=== PATIENT | female | born 1975 | race Caucasian/White ===

== ENCOUNTER 2017-08-13 17:16 | Emergency (ER) | payer SELFPAY ==
[~2017-08-13] VITALS: Ht 157.5 cm; Wt 100.0 kg
[~2017-08-13 17:16] MED LIST: AMOXICILLIN500 MG PO; ATENOLOL25 MG PO; ATENOLOL50 MG PO; CEPHALEXIN500 M1 OR; CEPHALEXIN500 MG PO; CLINDAMYCIN300 MG OR; FLONASE NASAL50 MCG; FUROSEMIDE20 MG PO; KEFLEX500 M1 PO; LASIX 40 MG TAB40 MG PO; LISINOPRIL10 MG PO; LISINOPRIL5 MG PO; LORTAB 7.5-3251 TAB PO; MEDDOSEPAK OR; NAPROSYN500 MG PO; NEW B/P MED; NO; NO HOME MEDS; PERCOCET 5/325M1 TAB OR; ROBITUSSIN AC OR; ROBITUSSIN AC10 ML OR; TYLENOL # 31 TAB OR; ULTRAM50 M1 PO; ZITHROMAX250 MG PO
[2017-08-13] MEDS ORDERED: PENICILLN VK500 MG PO (17:47)
[2017-08-13 17:49] VITALS: BP 146/95
== END 2017-08-13 18:02 | disposition left against medical advice (07) | DRG 153 ==
LOC: ED 17:16
DX: J02.9 Acute pharyngitis, unspecified (principal); F17.200 Nicotine dependence, unspecified, uncomplicated; R07.89 Other chest pain; I10 Essential (primary) hypertension

== ENCOUNTER 2017-12-14 00:42 | Emergency (ER) | payer SELFPAY ==
[~2017-12-14] VITALS: Ht 157.5 cm; Wt 104.5 kg
[~2017-12-14 00:42] MED LIST changes: +PENICILLN VK500 MG PO
[2017-12-14 00:46] VITALS: BP 194/111
[2017-12-14] MEDS ORDERED: MOTRIN800 MG PO (01:09)
[2017-12-14] MEDS ORDERED: TRAMADOL HCL50 MG PO (01:09)
[2017-12-14] MEDS ORDERED: AMOXICILLIN500 MG PO (01:09)
== END 2017-12-14 01:25 | disposition home or self-care (01) | DRG 159 ==
LOC: ED 00:42
DX: K02.9 Dental caries, unspecified (principal); F17.210 Nicotine dependence, cigarettes, uncomplicated; I10 Essential (primary) hypertension

== ENCOUNTER 2017-12-14 05:56 | Emergency (ER) | payer SELFPAY ==
[~2017-12-14] VITALS: Ht 157.5 cm; Wt 104.5 kg
[~2017-12-14 05:56] MED LIST changes: +MOTRIN800 MG PO; +TRAMADOL HCL50 MG PO
[2017-12-14 06:59] VITALS: BP 140/80
== END 2017-12-14 07:05 | disposition home or self-care (01) | DRG 159 ==
LOC: ED 05:56
DX: K02.9 Dental caries, unspecified (principal); F17.210 Nicotine dependence, cigarettes, uncomplicated

== ENCOUNTER 2018-07-23 14:47 | Emergency (ER) | payer SELFPAY ==
[~2018-07-23] VITALS: Ht 157.5 cm; Wt 110.0 kg
[2018-07-23] MEDS ORDERED: CLEOCIN300 MG PO (17:02)
[2018-07-23 17:10] VITALS: BP 144/84
[2018-07-25] MEDS ORDERED: AMOXICILLIN875 MG PO (16:47)
== END 2018-07-23 17:10 | disposition home or self-care (01) | DRG 159 ==
LOC: ED 14:47
DX: K04.7 Periapical abscess without sinus (principal); F17.210 Nicotine dependence, cigarettes, uncomplicated

== ENCOUNTER 2018-09-17 15:51 | Emergency (ER) | payer SELFPAY ==
[~2018-09-17] VITALS: Ht 157.5 cm; Wt 109.1 kg
[~2018-09-17 15:51] MED LIST changes: +AMOXICILLIN875 MG PO; +CLEOCIN300 MG PO
[2018-09-17] MEDS ORDERED: ZPAK PO (16:38)
[2018-09-17] MEDS ORDERED: POLYTRIM OU (16:38)
[2018-09-17 16:45] VITALS: BP 145/87
== END 2018-09-17 16:45 | disposition home or self-care (01) | DRG 153 ==
LOC: ED 15:51
DX: J06.9 Acute upper respiratory infection, unspecified (principal); H10.9 Unspecified conjunctivitis; I10 Essential (primary) hypertension; F17.210 Nicotine dependence, cigarettes, uncomplicated

== ENCOUNTER 2019-12-28 | Emergency (ER) | payer SELFPAY ==
[~2019-12-28] MED LIST changes: +POLYTRIM OU; +ZPAK PO
[2019-12-28] MEDS ORDERED: LISINOPRIL10 MG PO (18:32)
[2019-12-28 20:02] LABS: URINE BILIRUBIN - DIPSTICK NEGATIVE (NEGATIVE); URINE BLOOD DIPSTICK NEGATIVE (NEGATIVE); URINE COLOR YELLOW; URINE GLUCOSE - DIPSTICK NEGATIVE (NEGATIVE); URINE KETONE NEGATIVE (NEGATIVE); URINE LEUK ESTERASE NEGATIVE (NEGATIVE); URINE NITRITE - DIPSTICK NEGATIVE (Negative); URINE PROTEIN - DIPSTICK NEGATIVE (NEG-TRACE); URINE SPECIFIC GRAVITY 1.025; URINE UROBILINOGEN - DIPSTICK 0.2 E.U./dL (0.2)
[2019-12-28 20:03] LABS: HEMATOCRIT 46.4 % (37.0-47.0); HEMOGLOBIN 14.6 g/dl (12.0-16.0); IMMATURE GRANULOCYTES 0.6 % (0.0-5.0); MEAN CORPUSCULAR HGB 29.3 pG CALC (26.0-32.0); MEAN CORPUSCULAR HGB CONC 31.5 g/dL CAL (32.0-36.0); NEUT# 11.46 thou/uL (2.00-7.15); RED BLOOD COUNT 4.99 mill/uL (4.20-5.60); RED CELL DISTRI WIDTH 14.4 % (11.5-15.5)
[2019-12-28 20:13] LABS: ALBUMIN 4.6 g/dL (3.2-5.0); ALKALINE PHOSPHATASE 97 u/l (38-126); ANION GAP 15 (6-22 (CALC)); BILIRUBIN, TOTAL 0.6 mg/dL (0.0-1.4); BUN 10 mg/dL (7-17); BUN/CREATININE RATIO 13 (12-20 (CALC)); CARBON DIOXIDE 26 mmol/l (22-30); CHLORIDE 100 mmol/l (95-108); CREATININE 0.8 mg/dL (0.5-1.0); GFR > 60 ML/MIN (>=60 (CALC)); GFR FOR AFR.AMER. > 60 ML/MIN (>=60 (CALC)); POTASSIUM 4.8 mmol/l (3.5-5.1); SGOT/AST 33 u/l (14-36); SODIUM 136 mmol/l (137-146); TOTAL PROTEIN 8.5 g/dL (6.3-8.2)
[2019-12-28 20:20] LABS: ACT PARTIAL THROMBO TIME 27.3 SECONDS (20.0-32.5); INTERNATIONAL NORMALIZED RATIO 0.9 RATIO (0.7-1.3); PROTHROMBIN TIME 9.8 SECONDS (9.0-12.5)
[2019-12-28 20:25] LABS: MYOGLOBIN 31 ng/mL (0 - 62)
== END 2019-12-28 21:32 | disposition home or self-care (01) | DRG 159 ==
PROVIDERS: Emergency Medicine
DX: K04.7 Periapical abscess without sinus (principal); I10 Essential (primary) hypertension; F17.210 Nicotine dependence, cigarettes, uncomplicated

== ENCOUNTER 2020-02-17 22:14 | Emergency (ER) | payer SELFPAY ==
[2020-02-17] MEDS ORDERED: CLARITIN10 M1 PO (22:53)
[2020-02-17] MEDS ORDERED: FLONASE AL50 MCG/ACT (22:53)
[2020-02-17] MEDS ORDERED: AMOXICILLIN875 MG PO (22:53)
[2020-02-17] MEDS ORDERED: LISINOPRIL10 MG PO (22:53)
[2020-02-17 23:15] VITALS: BP 152/100
== END 2020-02-17 23:15 | disposition home or self-care (01) | DRG 153 ==
LOC: ED 22:14
DX: H65.91 Unspecified nonsuppurative otitis media, right ear (principal); H66.92 Otitis media, unspecified, left ear; I10 Essential (primary) hypertension; F17.210 Nicotine dependence, cigarettes, uncomplicated

== ENCOUNTER 2020-03-27 13:48 | Emergency (ER) | payer SELFPAY ==
[~2020-03-27] VITALS: Ht 157.5 cm; Wt 113.6 kg
[~2020-03-27 13:48] MED LIST changes: +CLARITIN10 M1 PO; +FLONASE AL50 MCG/ACT
[2020-03-27] MEDS ORDERED: AMOXICILLIN875 MG PO ×2 (15:23)
[2020-03-27 15:30] VITALS: BP 149/71
== END 2020-03-27 15:35 | disposition home or self-care (01) | DRG 153 ==
LOC: ED 13:48
DX: J02.9 Acute pharyngitis, unspecified (principal); I10 Essential (primary) hypertension; F17.210 Nicotine dependence, cigarettes, uncomplicated; Z20.828 Contact with and (suspected) exposure to other viral communicable diseases

== ENCOUNTER 2020-03-29 08:57 | Observation (INO) | payer SELFPAY ==
[~2020-03-29] VITALS: Ht 157.5 cm; Wt 110.8 kg
--- NOTE | 2020-03-29 08:57 | NUR ---
PT TO ROOM VIA WC
--- NOTE | 2020-03-29 09:05 | NUR ---
PT CHANGED TO GOWN. MONITORS APPLIED. PT REPORTS CHEST PAIN WORSE WITH DEEP BREATH. PT REPORTS HAS BEEN SICK SINCE THURSDAY BUT FEELING WORSE TODAY. PT AO X 3. SKIN PINK WARM AND DRY
[2020-03-29 09:15] LABS: HEMATOCRIT 42.4 % (37.0-47.0); HEMOGLOBIN 13.5 g/dl (12.0-16.0); IMMATURE GRANULOCYTES 0.6 % (0.0-5.0); MEAN CORPUSCULAR HGB 29.3 pG CALC (26.0-32.0); MEAN CORPUSCULAR HGB CONC 31.8 g/dL CAL (32.0-36.0); NEUT# 18.97 thou/uL (2.00-7.15); RED BLOOD COUNT 4.61 mill/uL (4.20-5.60); RED CELL DISTRI WIDTH 14.3 % (11.5-15.5)
--- NOTE | 2020-03-29 09:15 | NUR ---
PT REPORTS PAIN 3/10 AFTER NTG. BP 98/64. DR BELLAMY AWARE. FURTHER NTG HELD PER .
[2020-03-29 09:28] LABS: ALBUMIN 4.4 g/dL (3.2-5.0); ALKALINE PHOSPHATASE 132 u/l (38-126); ANION GAP 11 (6-22 (CALC)); BUN 9 mg/dL (7-17); BUN/CREATININE RATIO 10 (12-20 (CALC)); CARBON DIOXIDE 25 mmol/l (22-30); CHLORIDE 103 mmol/l (95-108); CREATININE 0.9 mg/dL (0.5-1.0); GFR > 60 ML/MIN (>=60 (CALC)); GFR FOR AFR.AMER. > 60 ML/MIN (>=60 (CALC)); SGOT/AST 19 u/l (14-36); SODIUM 135 mmol/l (137-146); TOTAL PROTEIN 8.1 g/dL (6.3-8.2)
[2020-03-29 09:31] LABS: BILIRUBIN, TOTAL 0.3 mg/dL (0.0-1.4)
[2020-03-29 09:56] LABS: C-REACTIVE PROTEIN 22.1 mg/dL (0-0.9)
--- NOTE | 2020-03-29 09:57 | NUR ---
PT POSITIONED FOR COMFORT. HOB ELEVATED. ICE PACK GIVEN
[2020-03-29 10:32] LABS: URINE BILIRUBIN - DIPSTICK NEGATIVE (NEGATIVE); URINE BLOOD DIPSTICK SMALL (NEGATIVE); URINE COLOR YELLOW; URINE GLUCOSE - DIPSTICK NEGATIVE (NEGATIVE); URINE KETONE TRACE mg/dL (NEGATIVE); URINE LEUK ESTERASE NEGATIVE (NEGATIVE); URINE NITRITE - DIPSTICK NEGATIVE (Negative); URINE PH 5.5 (4.5-8.0); URINE PROTEIN - DIPSTICK 30 mg/dL (NEG-TRACE); URINE SPECIFIC GRAVITY >=1.030; URINE UROBILINOGEN - DIPSTICK 0.2 E.U./dL (0.2)
[2020-03-29 10:33] LABS: URINE SQUAMOUS EPITHELIAL CELL FEW EPI/hpf (0-FEW)
--- NOTE | 2020-03-29 11:41 | NUR ---
PT RESTING ON STRETCHER. LUNCH TRAY GIVEN. MED SURG UNABLE TO TAKE PATIENT AT THIS TIME.
--- NOTE | 2020-03-29 13:14 | NUR ---
PT RESTING ON STRETCHER. PAIN /
--- NOTE | 2020-03-29 14:20 | NUR ---
PT RESTING ON STRETCHER. PAIN 12/22. MED SURG UNABLE TO TAKE PATIENT AT THIS TIME
--- NOTE | 2020-03-29 15:17 | NUR ---
PT CONTINUES AWAITING MED SURG ADMISSION
--- NOTE | 2020-03-29 15:37 | NUR ---
PT GIVEN JUICE AND WATER
--- NOTE | 2020-03-29 16:01 | NUR ---
MED SURG UNABLE TO TAKE REPORT AT THIS TIME
--- NOTE | 2020-03-29 16:50 | NUR ---
REPORT CALLED TO MED SURG
--- NOTE | 2020-03-29 17:10 | NUR ---
PT TAKEN VIA WHEELCHAIR. TELEMETRY IN PLACE TO MED SURG
--- NOTE | 2020-03-29 17:10 | NUR ---
PT ARRIVED TO [facility] ROOM 284 IN STABLE CONDITION VIA WHEELCHAIR, ACCOMPAINED BY POLI URIAS. PT AMBULATED FROM WHEELCHAIR TO BE WITH STEADY GAIT, FALL RISK BAND APPLIED. PT IS A/O X3. ASSESSMENT AND VITALS COMPLETED AT THIS TIME. BP 96/60, HR 83, O2 98% ON ROOM AIR. RESPIRATIONS ARE EVEN AND UNLABORED WITH NO SIGNS OF DISTRESS. LUNG SOUNDS ARE CLEAR. HEART RHYTHM IS NORMAL WITH TELE IN PLACE.BOWEL SOUNDS ARE ACTIVE IN ALL QUADRANTS WITH NO TENDERNESS, LAST REPORTED BM 03/28/20. RADIAL AND PEDAL PULSES ARE BOTH STRONG WITH NORMAL CAPILLARY REFILL. SKIN IS COOL AND DRY WITH NO EDEMA OR BREAKDOWN.#20 LAC FLUSHED, SITE APPEARS HEALTHY AND PATENT. IV FLUIDS STARTED AT 100ML ORDERED. PT INFORMS WRITTER THAT SHE PRESENTED TO [facility] ER FOR CHEST PAIN THAT SHE HAS BEEN EXPERIENCING FOR AN HOUR PRIOR TO COMING IN. PT STATES THAT SHE CURRENTLY HAS 3/10 "PRESSURE" ON CHEST. DR WHEELER NOTIFED. PT INFORMS WRITTER THAT SHE HAS NKDA, ALLERGY BAND APPLIED. PT DENIES ANY OTHER PAINS OR DISCOMFORTS AT THIS TIME. ALL SAFETY AND ISOLATION PRECAUTIONS IN PLACE WITH CALL LIGTH IN REACH, PT ORIENTED TO CALL SYSTEM AND ROOM.WILL CONTINUE TO MONITOR.
[2020-03-29 17:23] VITALS: BP 96/60
[2020-03-29 19:00] VITALS: BP 107/64
--- NOTE | 2020-03-29 19:00 | NUR ---
PT COMPLAINS OF 6/10 CHEST PAIN. TORADOL ADMINISTERED. RESPIRATIONS ARE EVEN AND UNLABORED WITH NO ISGNS OF DISTRESS. ALL SAFTEY PRECAUTIONS IN PLACE WITH CALL LIGHT IN REACH. WILL COTNINUE TO MONITOR
--- NOTE | 2020-03-29 21:45 | NUR ---
PT LAYING IN BED RESTING, NO APPARENT DISTRESS, RESPIRATIONS REG & UNLABORED. PHYSICAL ASSESMENT COMPLETE. PT C/O CHEST DISCOMFORT WITH COUGH, MEDICATED WITH PRN APAP, PRN SONATA ALSO ADMINISTERED PER PTS REQUEST. SEE E-MAR. SCHEDULED MEDS ADMINISTERED, SEE E-MAR. PT DENIES FURTHER NEEDS AT THIS TIME. PLAN OF CARE REVIEWED, PT DENIES QUESTIONS, VERBALIZES UNDERSTANDING. ITEMS WITHIN REACH, BED LOCKED IN LOW POSITION W/ BEDRAILS UP X2. CALL SANCHEZ WITHIN REACH, AGREES TO CALL PRN.
--- NOTE | 2020-03-29 23:40 | NUR ---
SNACK PROVIDED PER PTS REQUEST. PT REQUEST FOR ANTITTUSSIVE MEDICATION. DR. GAEL VILLARREAL, RESPONSE PENDING. FAN PROVIDED AT BEDSIDE FOR PT C/O ROOM BEING TO WARM.
[2020-03-29 23:50] VITALS: BP 93/56
--- NOTE | 2020-03-30 00:30 | NUR ---
2ND TROPONIN DRAWN
--- NOTE | 2020-03-30 01:08 | NUR ---
TROPONIN RESULTED, RESULTS NEGATIVE.
[2020-03-30 05:19] VITALS: BP 107/49
[2020-03-30 05:54] LABS: CHOLESTEROL HDL RATIO 3.2 (<4.4 (CALC))
[2020-03-30 06:00] LABS: MAGNESIUM 2.3 mg/dL (1.6-2.3)
--- NOTE | 2020-03-30 06:08 | NUR ---
ASSESMENT UNCHANGED FROM BEGINING OF SHIFT BASELINE ASSESMENT. AM HEMODYNAMICS WNL/ STABLE. PT AFEBRILE. PT DENIES NEEDS AT THIS TIME. ITEMS REMAIN WITHIN REACH, BED REMAINS LOCKED IN LOW POSITION W/ BEDRAILS UP X2. CALL SANCHEZ REMAINS WITHIN REACH, AGREES TO CALL PRN.
[2020-03-30 08:16] VITALS: BP 118/63
--- NOTE | 2020-03-30 08:34 | NUR ---
RECEIEVED REPORT FROM POLI BAEZ. PT RESTING IN LOW FOWLERS POSITITION. INTRODUCED SELF TO PT AND DISCUSSED POC.ASESSMENT AND VITALS COMPLETED AT THIS TIME. BP 118/60, HR 87, O2 99% ON ROOM AIR. RESPIRATIONS ARE EVEN AND UNLABORED WTIH NO SIGNS OF DISTRESS. LUNG SOUNDS ARE DIMINSIHED, PT DENIES ANY SOB. HEART RHYTHM IS NORMAL WITH TELE IN PLACE. BOWEL SOUNDS ARE ACTIVE IN ALL QUADRANTS. LAST REPORTED BM 02/27/20. RADIAL AND PEDAL PULSES ARE STRONG WITH NORMAL CAPILLARY REFILL. SKIN IS WARM AND DRY WITH NO EDEMA OR BREAKDOWN. IV FLUIDS RUNNING WITH EASE, SITE APPEARS HEALTHY AND PATENT. PT DENIES ANY PAIN OR DISCOMFORTS AT THIS TIME. ALL SAFETY PRECAUTIONS IN PLACE WITH CALL LIGHT IN REACH. WILL CONTINUE TO MONITOR.
[2020-03-30] MEDS ORDERED: AMOXICILLIN500 MG PO (09:13)
[2020-03-30 11:03] VITALS: BP 108/62
--- NOTE | 2020-03-30 11:19 | NUR ---
PT EDUCATED ON DISCHARGE INSTRUCTIONS AND AMOXICILLIN. PT VERBALIZED UNDERSTANDING. IV REMOVED WITH CATHATER STILL INTACT. PT TOLERATED WELL. PT DRESSING AT THE TIME, PT STATES THAT SHE HAS DROVEN HERSELF. ALL SAFETY PRECAUTIONS IN PLACE WITH CALL LIGHT IN REACH. WILL CONTINUE TO MONITOR
--- NOTE | 2020-03-30 11:29 | NUR ---
Discharge instructions given. Patient verbalizes understanding of same. Discharged in stable condition via Ambulatory to Home with staff. All belongings sent with pt. PT DISCHARGED FROM [facility] IN STABLE CONDITION WALKING WITH STABLE GAIT. PT INFORMED WRITTER THAT HER CAR WAS AT THE HOSPITAL AND SHE IS DRIVING HERSELF. ALL DISCHARGE INSTRUCTIONS, AMOXICILLIN PRESCRIPTION AND BELONGINGS LEFT WITH PT.
== END 2020-03-30 11:29 | disposition home or self-care (01) | DRG 313 ==
LOC: ED 08:57 → ED-I 11:01 → ED 11:18 → ED-I 11:19 → MS2 11:37
PROVIDERS: Family Medicine; ADMIT Internal Medicine; ATTEND Internal Medicine
DX: R07.89 Other chest pain (principal); I10 Essential (primary) hypertension; F15.10 Other stimulant abuse, uncomplicated; F17.200 Nicotine dependence, unspecified, uncomplicated; D72.829 Elevated white blood cell count, unspecified; R05 Cough; K04.7 Periapical abscess without sinus; Z20.828 Contact with and (suspected) exposure to other viral communicable diseases
CPT/HCPCS: G0378; Q9967

== ENCOUNTER 2020-09-29 12:55 | Emergency (ER) | payer SELFPAY ==
[~2020-09-29] VITALS: Ht 157.5 cm; Wt 113.0 kg
[2020-09-29] MEDS ORDERED: HYDROCHLOROTH12.5 M1 PO (13:24)
[2020-09-29] MEDS ORDERED: CLINDAMYCIN300 M1 PO (13:32)
[2020-09-29 13:34] VITALS: BP 153/75
== END 2020-09-29 13:37 | disposition home or self-care (01) | DRG 159 ==
LOC: ED 12:55
DX: K04.7 Periapical abscess without sinus (principal); K02.9 Dental caries, unspecified; I10 Essential (primary) hypertension; F17.210 Nicotine dependence, cigarettes, uncomplicated

== ENCOUNTER 2021-09-13 14:34 | Emergency (ER) | payer SELFPAY ==
[~2021-09-13] VITALS: Ht 157.5 cm; Wt 108.0 kg
[~2021-09-13 14:34] MED LIST changes: +CLINDAMYCIN300 M1 PO; +HYDROCHLOROTH12.5 M1 PO
[2021-09-13 17:29] LABS: URINE BILIRUBIN - DIPSTICK NEGATIVE (NEGATIVE); URINE BLOOD DIPSTICK TRACE-INTACT (NEGATIVE); URINE COLOR YELLOW; URINE GLUCOSE - DIPSTICK NEGATIVE (NEGATIVE); URINE KETONE NEGATIVE (NEGATIVE); URINE LEUK ESTERASE NEGATIVE (NEGATIVE); URINE PROTEIN - DIPSTICK NEGATIVE (NEG-TRACE); URINE SPECIFIC GRAVITY >=1.030; URINE UROBILINOGEN - DIPSTICK 0.2 E.U./dL (0.2)
[2021-09-13 17:37] LABS: URINE NITRITE - DIPSTICK NEGATIVE (Negative)
[2021-09-13] MEDS ORDERED: FLEXERIL5 M1 PO (18:02)
[2021-09-13] MEDS ORDERED: MOTRIN800 MG PO (18:02)
[2021-09-13 18:42] VITALS: BP 152/88
== END 2021-09-13 18:42 | disposition home or self-care (01) | DRG 563 ==
LOC: ED 14:34
DX: S39.012A Strain of muscle, fascia and tendon of lower back, initial encounter (principal); I10 Essential (primary) hypertension; F17.200 Nicotine dependence, unspecified, uncomplicated; X58.XXXA Exposure to other specified factors, initial encounter; Z87.442 Personal history of urinary calculi

== ENCOUNTER 2021-11-29 21:48 | Emergency (ER) | payer SELFPAY ==
[~2021-11-29] VITALS: Ht 157.5 cm; Wt 109.0 kg
[~2021-11-29 21:48] MED LIST changes: +FLEXERIL5 M1 PO
[2021-11-29 21:57] VITALS: BP 144/85
[2021-11-29 22:01] VITALS: BP 150/84
[2021-11-29] MEDS ORDERED: LORTAB 1010 MG PO (22:06)
[2021-11-29] MEDS ORDERED: AMOX/K CLAV875 M1 PO (22:06)
[2021-11-29 22:16] VITALS: BP 151/80
[2021-11-29 22:24] VITALS: BP 151/80
== END 2021-11-29 22:24 | disposition home or self-care (01) | DRG 159 ==
LOC: ED 21:48
DX: K04.7 Periapical abscess without sinus (principal); S02.5XXA Fracture of tooth (traumatic), initial encounter for closed fracture; I10 Essential (primary) hypertension; F17.200 Nicotine dependence, unspecified, uncomplicated; X58.XXXA Exposure to other specified factors, initial encounter

== ENCOUNTER 2022-02-22 20:23 | Emergency (ER) | payer SELFPAY ==
[~2022-02-22] VITALS: Ht 157.5 cm; Wt 113.0 kg
[~2022-02-22 20:23] MED LIST changes: +AMOX/K CLAV875 M1 PO; +LORTAB 1010 MG PO
[2022-02-22 21:52] LABS: HEMATOCRIT 38.6 % (37.0-47.0); HEMOGLOBIN 12.2 g/dl (12.0-16.0); IMMATURE GRANULOCYTES 0.6 % (0.0-5.0); MEAN CORPUSCULAR HGB CONC 31.6 g/dL CAL (32.0-36.0); NEUT# 10.47 thou/uL (2.00-7.15); RED BLOOD COUNT 3.94 mill/uL (4.20-5.60); RED CELL DISTRI WIDTH 13.6 % (11.5-15.5)
[2022-02-22 22:14] LABS: ALBUMIN 3.9 g/dL (3.2-5.0); ALKALINE PHOSPHATASE 82 u/l (38-126); ANION GAP 11 (6-22 (CALC)); BILIRUBIN, TOTAL 0.3 mg/dL (0.0-1.4); BUN 8 mg/dL (7-17); BUN/CREATININE RATIO 11 (12-20 (CALC)); CARBON DIOXIDE 30 mmol/l (22-30); CHLORIDE 101 mmol/l (95-108); CREATININE 0.8 mg/dL (0.5-1.0); GFR FOR AFR.AMER. > 60 ML/MIN (>=60 (CALC)); GFR OTHER RACES > 60 ML/MIN (>=60 (CALC)); POTASSIUM 3.8 mmol/l (3.5-5.1); SGOT/AST 32 u/l (14-36); SODIUM 137 mmol/l (137-146); TOTAL PROTEIN 7.4 g/dL (6.3-8.2)
[2022-02-22] MEDS ORDERED: KEFLEX500 MG PO (23:22)
[2022-02-22] MEDS ORDERED: ROBITUSSIN AC10 ML PO (23:22)
[2022-02-22] MEDS ORDERED: MEDDOSEPAK PO (23:22)
[2022-02-22 23:27] VITALS: BP 145/89
== END 2022-02-22 23:35 | disposition home or self-care (01) | DRG 203 ==
LOC: ED 20:23
PROVIDERS: Emergency Medicine
DX: J40 Bronchitis, not specified as acute or chronic (principal)

== ENCOUNTER 2022-03-12 21:50 | Emergency (ER) | payer SELFPAY ==
[~2022-03-12] VITALS: Ht 157.5 cm; Wt 114.0 kg
[~2022-03-12 21:50] MED LIST changes: +KEFLEX500 MG PO; +MEDDOSEPAK PO; +ROBITUSSIN AC10 ML PO
[2022-03-12 22:26] VITALS: BP 144/97
[2022-03-12 22:30] VITALS: BP 123/102
[2022-03-12 22:45] VITALS: BP 140/81
[2022-03-12] MEDS ORDERED: VIBRAMYCIN100 M2 PO (22:54)
[2022-03-12 23:00] VITALS: BP 137/73
== END 2022-03-12 23:10 | disposition home or self-care (01) | DRG 203 ==
LOC: ED 21:50
DX: J40 Bronchitis, not specified as acute or chronic (principal); I10 Essential (primary) hypertension; F17.200 Nicotine dependence, unspecified, uncomplicated

== ENCOUNTER 2022-05-13 10:35 | Emergency (ER) | payer SELFPAY ==
[~2022-05-13] VITALS: Ht 157.5 cm; Wt 113.6 kg
[~2022-05-13 10:35] MED LIST changes: +VIBRAMYCIN100 M2 PO
[2022-05-13 10:43] VITALS: BP 138/99
[2022-05-13 10:45] VITALS: BP 153/88
[2022-05-13 11:00] VITALS: BP 134/89
[2022-05-13] MEDS ORDERED: AMOX/K CLAV875 M1 PO (11:02)
[2022-05-13] MEDS ORDERED: DECADRON4 MG PO (11:07)
[2022-05-13 11:15] VITALS: BP 114/62
[2022-05-13 11:30] VITALS: BP 122/74
== END 2022-05-13 11:55 | disposition home or self-care (01) | DRG 153 ==
LOC: ED 10:35
DX: J02.0 Streptococcal pharyngitis (principal); I10 Essential (primary) hypertension; F17.210 Nicotine dependence, cigarettes, uncomplicated
CPT/HCPCS: J0561; J1100

== ENCOUNTER 2022-10-09 22:38 | Emergency (ER) | payer SELFPAY ==
[~2022-10-09] VITALS: Ht 157.5 cm; Wt 114.0 kg
[~2022-10-09 22:38] MED LIST changes: +DECADRON4 MG PO
[2022-10-09] MEDS ORDERED: CORTISPORIN OTI10 ML AD (22:55)
[2022-10-09] MEDS ORDERED: LISINOPRIL2.5 MG PO (22:57)
[2022-10-09] MEDS ORDERED: FUROSEMIDE20 MG PO (22:57)
[2022-10-09 23:09] VITALS: BP 128/82
== END 2022-10-09 23:39 | disposition home or self-care (01) | DRG 156 ==
LOC: ED 22:38
DX: H60.91 Unspecified otitis externa, right ear (principal); I10 Essential (primary) hypertension; F17.200 Nicotine dependence, unspecified, uncomplicated

== ENCOUNTER 2022-10-15 20:49 | Emergency (ER) | payer SELFPAY ==
[~2022-10-15] VITALS: Ht 157.5 cm; Wt 118.2 kg
[~2022-10-15 20:49] MED LIST changes: +CORTISPORIN OTI10 ML AD; +LISINOPRIL2.5 MG PO
[2022-10-15] MEDS ORDERED: FLONASE AL50 MCG/ACT (22:20)
[2022-10-15] MEDS ORDERED: CLARITIN10 M2 PO (22:20)
[2022-10-15] MEDS ORDERED: AMOXICILLIN500 MG PO (22:20)
[2022-10-15 22:32] VITALS: BP 156/99
== END 2022-10-15 22:39 | disposition home or self-care (01) | DRG 153 ==
LOC: ED 20:49
DX: J02.9 Acute pharyngitis, unspecified (principal); J31.0 Chronic rhinitis; H65.93 Unspecified nonsuppurative otitis media, bilateral

== ENCOUNTER 2023-04-05 10:48 | Emergency (ER) | payer OTHER ==
[~2023-04-05] VITALS: Ht 157.5 cm; Wt 108.8 kg
[~2023-04-05 10:48] MED LIST changes: +CLARITIN10 M2 PO
[2023-04-05 11:22] LABS: BASO% 0.3 % (0-3); EOS% 1.3 % (0-8); IMMATURE GRANULOCYTES 0.1 % (0.0-5.0); LYMPH% 26.5 % (15-41); MEAN CORPUSCULAR HGB 30.1 pG CALC (26.0-32.0); MEAN CORPUSCULAR HGB CONC 31.6 g/dL CAL (32.0-36.0); NEUT# 9.96 thou/uL (2.00-7.15); NEUT% 66.8 % (42-76); RED BLOOD COUNT 4.79 mill/uL (4.20-5.60); RED CELL DISTRI WIDTH 13.3 % (11.5-15.5)
[2023-04-05 11:22] LABS: URINE COLOR DK. YELLOW; URINE GLUCOSE - DIPSTICK NEGATIVE (NEGATIVE); URINE KETONE 15 mg/dL (NEGATIVE)
[2023-04-05 11:23] LABS: URINE SPECIFIC GRAVITY >=1.030
[2023-04-05 11:24] LABS: URINE NITRITE - DIPSTICK NEGATIVE (Negative); URINE PH 5.5 (4.5-8.0); URINE PROTEIN - DIPSTICK 30 mg/dL (NEG-TRACE); URINE UROBILINOGEN - DIPSTICK 0.2 E.U./dL (0.2)
[2023-04-05 11:25] LABS: URINE BLOOD DIPSTICK NEGATIVE (NEGATIVE); URINE LEUK ESTERASE NEGATIVE (NEGATIVE)
[2023-04-05 11:26] LABS: HEMATOCRIT 45.5 % (37.0-47.0); HEMOGLOBIN 14.4 g/dl (12.0-16.0)
[2023-04-05 11:26] LABS: URINE EPITHELIAL CELLS FEW EPI/hpf (0-FEW); URINE MUCUS MODERATE hpf (NONE-FEW)
[2023-04-05 11:38] LABS: ALBUMIN 4.3 g/dL (3.2-5.0); ALKALINE PHOSPHATASE 91 u/l (38-126); ANION GAP 14 (6-22 (CALC)); BILIRUBIN, TOTAL 0.4 mg/dL (0.02-1.3); BUN 8 mg/dL (7-17); BUN/CREATININE RATIO 9 (12-20 (CALC)); CARBON DIOXIDE 27 mmol/l (22-30); CHLORIDE 103 mmol/l (95-108); CREATININE 0.9 mg/dL (0.5-1.0); GFR FOR AFR.AMER. > 60 ML/MIN (>=60 (CALC)); GFR OTHER RACES > 60 ML/MIN (>=60 (CALC)); POTASSIUM 4.3 mmol/l (3.5-5.1); SODIUM 140 mmol/l (137-146); TOTAL PROTEIN 7.9 g/dL (6.3-8.2)
[2023-04-05 11:44] LABS: SGOT/AST 76 u/l (14-36)
[2023-04-05] MEDS ORDERED: IBUPROFEN600 MG PO (13:30)
[2023-04-05 13:53] VITALS: BP 132/88
== END 2023-04-05 14:18 | disposition home or self-care (01) ==
LOC: ED 10:48
PROVIDERS: Family Medicine
DX: M54.50 Low back pain, unspecified (principal); E11.9 Type 2 diabetes mellitus without complications; I10 Essential (primary) hypertension; E66.9 Obesity, unspecified; F17.200 Nicotine dependence, unspecified, uncomplicated
CPT/HCPCS: Q9967